=== PATIENT | female | born 1960 | race Caucasian/White ===

== ENCOUNTER 2016-12-28 10:24 | Outpatient (CLI) | payer MEDICARE, OTHER, MEDICAID ==
--- NOTE | 2016-12-28 12:34 | RAD ---
LEFT FOOT THREE VIEWS: History: 56-year-old female with left foot pain without trauma for 4-5 months. FINDINGS: No fracture, dislocation, or other significant acute osseous abnormality. POS: [facility]
== END 2016-12-28 10:25 | disposition home or self-care (01) ==
LOC: MADRAD 10:24
PROVIDERS: ATTEND General Practice
DX: M79.672 Pain in left foot (principal)

== ENCOUNTER 2017-05-21 12:42 | Emergency (ER) | payer MEDICARE, OTHER, MEDICAID | END 2017-05-21 13:40 | disposition left against medical advice (07) | LOC: MADERS 12:42 | DX: R51 Headache (principal); I10 Essential (primary) hypertension; J44.9 Chronic obstructive pulmonary disease, unspecified; F17.210 Nicotine dependence, cigarettes, uncomplicated; Z79.899 Other long term (current) drug therapy ==

== ENCOUNTER 2021-10-01 09:03 | Outpatient (CLI) | payer MEDICARE, OTHER | END 2021-10-01 09:04 | disposition home or self-care (01) | LOC: MADRAD 09:03 | PROVIDERS: ATTEND Registered Nurse | DX: M54.50 Low back pain, unspecified (principal); M47.816 Spondylosis without myelopathy or radiculopathy, lumbar region; M43.17 Spondylolisthesis, lumbosacral region | CPT/HCPCS: 72100 ==